=== PATIENT | male | born 1965 | race Caucasian/White ===

== ENCOUNTER 2017-04-30 19:40 | Emergency (ER) | payer MEDICARE, MEDICAID ==
[~2017-04-30] VITALS: Ht 185.4 cm; Wt 55.0 kg
[~2017-04-30 19:40] MED LIST: ALBU18HF2 INH; MAGN400T6 PO; ONDA4TAB9 PO; POTA10TA36 PO; RANI-366 PO; doxycycline PO
[2017-04-30] MEDS ORDERED: CEPH-572 PO (20:24)
[2017-04-30] MEDS ORDERED: SULF1TAB49 PO (20:24)
[2017-04-30] MEDS ORDERED: HYDR-569 PO (20:26)
[2017-04-30 20:40] VITALS: BP 132/89
== END 2017-04-30 20:41 | disposition home or self-care (01) ==
LOC: ER 19:41
DX: L03.011 Cellulitis of right finger (principal); J45.909 Unspecified asthma, uncomplicated; J44.9 Chronic obstructive pulmonary disease, unspecified; G89.29 Other chronic pain; F17.200 Nicotine dependence, unspecified, uncomplicated; G62.9 Polyneuropathy, unspecified; Z79.899 Other long term (current) drug therapy
CPT/HCPCS: 73140; 99284

== ENCOUNTER 2018-05-09 18:36 | Emergency (ER) | payer MEDICARE, MEDICAID ==
[~2018-05-09] VITALS: Ht 175.3 cm; Wt 58.3 kg
[~2018-05-09 18:36] MED LIST changes: +HYDR-4383 PO
--- NOTE | 2018-05-09 19:10 | NUR ---
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 SHE WILL TRY TO OBTAIN RECORDS. SHE WAS ABLE TO PULL UP RECENT LABS FROM A VISIT WITH [facility] AND THEY ARE IN CHART.
[2018-05-09 19:55] LABS: BASOPHILS # (AUTO) 0.1 X10'3 (0-0.2); BASOPHILS % (AUTO) 1.4 % (0-1); EOSINOPHILS # (AUTO) 0.1 X10'3 (0-0.9); EOSINOPHILS % (AUTO) 2.4 % (0-6); HEMATOCRIT 41.2 % (42.0-52.0); LYMPHOCYTES % (AUTO) 17.8 % (21-51); MEAN CORPUSCULAR HEMOGLOBIN 29.4 PG (27.0-31.0); MEAN CORPUSCULAR HGB CONC 33.9 % (33.0-36.5); MEAN CORPUSCULAR VOLUME 86.7 FL (78-98); MEAN PLATELET VOLUME 9.4 FL (7.4-10.4); MONOCYTES % (AUTO) 16.8 % (2-12); NEUTROPHILS # (AUTO) 3.5 X10'3 (1.8-7.7); NEUTROPHILS % (AUTO) 61.6 % (42-75); PLATELET COUNT 269 X10'3 (140-440); RED BLOOD COUNT 4.76 X10'6 (4.70-6.10); RED CELL DISTRIBUTION WIDTH 15.6 % (11.5-14.5); WHITE BLOOD COUNT 5.8 X10'3 (4.5-11.0)
[2018-05-09 19:59] LABS: ALANINE AMINOTRANSFERASE 28 U/L (12-78); ALBUMIN 3.4 G/DL (3.4-5.0); ALBUMIN/GLOBULIN RATIO 0.9 (1.1-1.5); ALKALINE PHOSPHATASE 79 IU/L (46-116); ANION GAP 12 (8-16); ASPARTATE AMINO TRANSFERASE 20 U/L (10-37); BILIRUBIN,TOTAL 0.2 MG/DL (0.1-1.0); BLOOD UREA NITROGEN 26 MG/DL (7-18); BUN/CREATININE RATIO 23.4 (5.4-32.0); CALCIUM 9.5 MG/DL (8.5-10.1); CHLORIDE 101 MMOL/L (99-107); CREATININE 1.11 MG/DL (0.60-1.10); SODIUM 139 MMOL/L (135-145); TOTAL CARBON DIOXIDE 26.4 MMOL/L (24-32); TOTAL PROTEIN 7.2 G/DL (6.4-8.2); eGFR 70 ML/MIN
[2018-05-09 20:00] LABS: INR 0.9 INR; PARTIAL THROMBOPLASTIN TIME 26 SECONDS (22-32); PROTHROMBIN TIME 9.6 SECONDS (9.0-12.0)
[2018-05-09 20:04] LABS: GLUCOSE 106 MG/DL (70-104); POTASSIUM 4.5 MMOL/L (3.5-5.1)
[2018-05-09] MEDS ORDERED: normal saline 1000ML IV soln IVB ONE (20:15)
[2018-05-09] MEDS ORDERED: albuterol 2.5 MG/3 ML nebule NEB ONE ×2 (20:15→21:25)
[2018-05-09] MEDS ORDERED: methylPREDNISolone sod succ 125mg/2ml vial IV ONE (20:15)
[2018-05-09] MEDS ORDERED: ipratropium/albuterol 3ml nebule NEB ONE (20:15)
[2018-05-09 21:19] VITALS: BP 95/62
[2018-05-09] MEDS ORDERED: PRED20TA PO (21:32)
[2018-05-09] MEDS ORDERED: ALBU18HF2 INH (21:32)
[2018-05-09] MEDS ORDERED: AZIT250T PO (21:32)
[2018-05-09] MEDS ORDERED: LORazepam 1 MG tablet PO ONE (21:40)
--- NOTE | 2018-05-09 21:47 | NUR ---
RT AT BEDSIDE FOR BREATHING TX.
[2018-05-09] MEDS ORDERED: LORazepam 0.5 MG tablet PO ONE (22:05)
== END 2018-05-09 22:11 | disposition home or self-care (01) ==
LOC: ER 18:37
DX: J44.1 Chronic obstructive pulmonary disease with (acute) exacerbation (principal); R42 Dizziness and giddiness; G62.9 Polyneuropathy, unspecified; G89.29 Other chronic pain; M54.9 Dorsalgia, unspecified; Z56.0 Unemployment, unspecified
CPT/HCPCS: 36415; 71045; 80053; 84484; 85025; 85610; 85730; 93005; 94640; 94760; 96374; 99284; J2930; J7030

== ENCOUNTER 2024-06-09 08:05 | Outpatient (CLI) | payer BC, MEDICAID ==
[~2024-06-09 08:05] MED LIST changes: +AZIT250T PO; +MAGN400T56 PO; -MAGN400T6 PO; +POTA-205 PO; -POTA10TA36 PO
== END 2024-06-09 23:59 | disposition home or self-care (01) ==
LOC: MRI02 08:05
PROVIDERS: ATTEND Nurse Practitioner Family
DX: G93.6 Cerebral edema (principal); R51.9 Headache, unspecified; J32.0 Chronic maxillary sinusitis; Z86.73 Personal history of transient ischemic attack (TIA), and cerebral infarction without residual deficits
CPT/HCPCS: 70551